=== PATIENT | female | born 1985 | race Caucasian/White ===

== ENCOUNTER 2020-12-10 13:47 | Emergency (ER) | payer OTHER, SELFPAY ==
--- NOTE | ~2020-12-10 | US_ITS ---
EXAMINATION: US OB <=14 wk fetus w TV DATE: 12/10/2020 15:46 INDICATION: Vaginal bleeding and cramping during first trimester of TECHNIQUE: Real-time pelvic ultrasound utilizing both a transvaginal and transabdominal probe was pe rformed. The interpreting radiologist was not present for the study. COMPARISON: None. FINDINGS: The uterus measures 10.4 x 6.8 x 7.2 cm. There is an intrauterine gestational sac. There is a 2 mm p eripheral nodular echogenic focus within the sac which could represent the pole. No evident fet al heart motion on Doppler imaging. The resorptive crown rump length of 2 mm would correlate with an estimated gestational age of 5 weeks and 5 days. The mean sac diameter measures 2.2 cm. There is a 1. 3 x 0.6 x 1.2 cm hypoechoic likely subchorionic hematoma along one side of the gestational sac. The right ovary measures 2.9 x 2.4 x 1.8 cm. The left ovary measures 3.9 x 2.6 x 2.3 cm. There are a few subcentimeter anechoic cysts/follicles at both ovaries. Vascular flow identified at both ovaries on color Doppler. There is no free fluid in the pelvis. IMPRESSION: 1. Single intrauterine gestational sac with possible 2 mm pole but no discernible heart motion on color Doppler which could be due to either early or failed . 2. Gestational age by ultrasound based upon presumptive 2 mm pole of 5 weeks 5 day(s) +/- 4 da y(s) with ultrasound estimated date of delivery (DANIEL) of 08/07/2021. 3. Small subchorionic hematoma. Reviewed, dictated and finalized at location A. IMPRESSION: 1. Single intrauterine gestational sac with possible 2 mm pole but no dis cernible heart motion on color Doppler which could be due to either early pregn prasanth or failed . 2. Gestational age by ultrasound based upon presumptive 2 mm pole of 5 w eeks 5 day(s) +/- 4 day(s) with ultrasound estimated date of delivery (DANIEL) of 08/07/2021. 3. Small subchorionic hematoma.
[2020-12-10 13:55] VITALS: BP 127/69; PULSE 58; RESP 18; TEMP 36.8; O2SAT 99
[2020-12-10 14:12] LABS: Basophils Percent Auto 0.5 % (0.2-1.2); Eosinophils Absolute Auto 0.2 K/mm3 (0-0.3); Eosinophils Percent Auto 3.4 % (0-4.4); Hematocrit 40.4 % (37.0-47.0); Hemoglobin 13.4 g/dL (12.0-15.0); Immature Granulocyte Absolute 0.02 K/mm3 (0.00-0.031); Immature Granulocyte Percent A 0.3 % (0-0.5); Lymphocytes Absolute Auto 1.67 K/mm3 (0.9-3.2); Lymphocytes Percent Auto 26.9 % (18.3-44.2); Mean Corpuscular HGB Conc 33.2 g/dl (32-36); Mean Corpuscular Hemoglobin 28.8 pg (26-34); Mean Corpuscular Volume 86.9 fl (80-100); Mean Platelet Volume 8.5 fl (7.4-10.4); Monocytes Absolute Auto 0.3 K/mm3 (0.1-0.6); Monocytes Percent Auto 4.7 % (2.6-8.5); Neutrophils Percent Auto 64.2 % (45.5-73.1); Platelet Count Result 240 k/mm3 (150-375); Red Blood Count 4.65 M/mm3 (4.2-5.4); Red Cell Distribution Width 14.1 % (11.5-14.5); White Blood Count 6.2 K/mm3 (4.5-10.0)
--- NOTE | 2020-12-10 15:10 | PC.NURSE ---
Pelvic exam per Dr. Mejia with administrative tech x2. Pt tolerated well.
[2020-12-10 15:20] VITALS: BP 102/59; PULSE 61; RESP 18; O2SAT 98
[2020-12-10 15:43] VITALS: BP 125/68; PULSE 49
--- NOTE | 2020-12-10 15:43 | PC.NURSE ---
Pt to and from ultrasound. Preparing to perform orthstatics.
[2020-12-10 15:45] VITALS: BP 121/84; PULSE 64
[2020-12-10 15:46] VITALS: BP 128/84; PULSE 82
[2020-12-10 16:10] VITALS: BP 128/67; PULSE 59; RESP 17; O2SAT 99
--- NOTE | 2020-12-10 16:59 | ED.GENADULT ---
HPI - General Adult General Chief complaint: ASSOCIATE RELATIONS SPECIALIST Stated complaint: preg, vag bleed Time Seen by Provider: 12/10/20 14:49 Source: patient Mode of arrival: EMS Limitations: no limitations History of Present Illness HPI narrative: 35-year-old 4 para 3 about 10 weeks of gestation here with complaints of vaginal bleeding since this morning. Patient noticed bright red blood on her toilet paper. She also complains of lower abdominal cramping. She denies passing any clots. Onset (ago): hour(s) (1) Quality: aching Associated symptoms: denies other symptoms Review of Systems Review of Systems: All systems reviewed & are unremarkable except as noted in HPI and below Constitutional: Constitutional: Reports no additional constitutional complaints Eyes: Eyes: Reports no additional eye complaints ENT: Reports system reviewed and no additional complaints, except as documented Cardiovascular: Cardiovascular: Reports no additional cardiovascular complaints Respiratory: Respiratory: Reports no additional respiratory complaints Gastrointestinal: Gastrointestinal: Reports no additional gastrointestinal complaints Genitourinary: Genitourinary: Reports as per HPI Musculoskeletal: Musculoskeletal: Reports no additional musculoskeletal complaints Integumentary/Breasts: Skin/Breast: Reports system reviewed and no additional complaints, except as docu Exam Narrative: Exam Narrative: GENERAL: Well-appearing, well-nourished, and in no acute distress. HEAD: Normocephalic, atraumatic. EYES: PERRLA and EOMI.. NECK: Supple. CHEST: Clear to auscultation. No respiratory distress. HEART: Regular rate and rhythm. No murmur heard. Normal peripheral pulses. ABDOMEN: Soft, nontender, nondistended, normal active bowel sounds. Pelvic normal labia. No blood in the vaginal vault. Cervix closed EXTREMITIES: Normal range of motion. No edema. SKIN: Warm, dry, no rash. NEURO: No focal deficits. Alert and oriented x3. PSYCH: Normal mood and affect. Course Course Emergency Course: Inform patient about her lab work and ultrasound findings she states that she is about 10 weeks however the ultrasound shows 5 weeks of gestation with no heart tones yet I advised her to follow-up with her OB doctor in the next few days and repeat an ultrasound. Vital Signs Vital signs: Vital Signs Temperature 36.8 C 12/10/20 13:55 Pulse Rate 58 L 12/10/20 13:55 Respiratory Rate 18 12/10/20 13:55 Blood Pressure 127/69 12/10/20 13:55 Pulse Oximetry 99 12/10/20 13:55 Temperature 36.8 C 12/10/20 13:55 Pulse Rate 82 12/10/20 15:46 Respiratory Rate 18 12/10/20 13:55 Blood Pressure 128/84 12/10/20 15:46 Pulse Oximetry 99 12/10/20 13:55 Medical Decision Making Vital Signs Vital Signs: Vital Signs Temperature 36.8 C 12/10/20 13:55 Pulse Rate 58 L 12/10/20 13:55 Respiratory Rate 18 12/10/20 13:55 Blood Pressure 127/69 12/10/20 13:55 Pulse Oximetry 99 12/10/20 13:55 Temperature 36.8 C 12/10/20 13:55 Pulse Rate 82 12/10/20 15:46 Respiratory Rate 18 12/10/20 13:55 Blood Pressure 128/84 12/10/20 15:46 Pulse Oximetry 99 12/10/20 13:55 Lab Data Result diagrams: 12/10/20 14:03 Labs: Lab Results 12/10/20 12/10/20 12/10/20 Range/Units 14:03 14:03 14:03 WBC 6.2 (4.5-10.0) K/mm3 RBC 4.65 (4.2-5.4) M/mm3 Hgb 13.4 (12.0-15.0) g/dL Hct 40.4 (37.0-47.0) % MCV 86.9 (80-100) fl MCH 28.8 (26-34) pg MCHC 33.2 (32-36) g/dl RDW 14.1 (11.5-14.5) % Plt Count 240 (150-375) k/mm3 MPV 8.5 (7.4-10.4) fl Immature Gran % (Auto) 0.3 (0-0.5) % Neut % (Auto) 64.2 (45.5-73.1) % Lymph % (Auto) 26.9 (18.3-44.2) % [place] % (Auto) 4.7 (2.6-8.5) % Eos % (Auto) 3.4 (0-4.4) % Baso % (Auto) 0.5 (0.2-1.2) % Lymph # (Auto) 1.67 (0.9-3.2) K/mm3 [place] # (Auto) 0.3 (0.1-0.6) K/mm3 Eos # (Auto) 0.2 (0-0.3) K/mm3
== END 2020-12-10 17:10 | disposition home or self-care (01) ==
PROVIDERS: Emergency Medicine; Emergency Provider Family Medicine
DX: O20.0 Threatened abortion (principal); Z3A.01 Less than 8 weeks gestation of pregnancy
CPT/HCPCS: 36415; 76801; 76817; 84702; 85025; 85461; 99284

== ENCOUNTER 2020-12-13 14:39 | Emergency (ER) | payer OTHER, SELFPAY ==
--- NOTE | ~2020-12-13 | US_ITS ---
EXAMINATION: US OB <=14 wk fetus w TV DATE: 12/13/2020 15:16 INDICATION: Vaginal bleeding. First trimester. TECHNIQUE: Real-time transabdominal and transvaginal pelvic ultrasound was performed. COMPARISON: Ultrasound 12/10/2020 FINDINGS: TRANSABDOMINAL ULTRASOUND: The uterus measures 10.5 x 6.5 x 8.7 cm. TRANSVAGINAL ULTRASOUND: There is an intrauterine gestational sac with mean diameter of 2.3 cm, which correlates with an estimated gestational age of 7 weeks and 1 day +/- 5 days. No yolk sac is identif ied, which is not reassuring. There are 3 mm and 4 mm masses in the gestational sac, either of which could be a pole. heart motion is not identified, which is normal at this size. The right ovary measures 1.9 x 2.0 x 2.9 cm. The left ovary measures 2.3 x 2.6 x 2.0 cm. There is no free flui d in the pelvis. IMPRESSION: 1. Single intrauterine gestational sac with 3 mm and 4 mm masses, either of which or both of which c ould be poles. Serial beta-hCGs are recommended. Reviewed, dictated and finalized at location A. IMPRESSION: 1. Single intrauterine gestational sac with 3 mm and 4 mm masses, either of wh ich or both of which could be poles. Serial beta-hCGs are recommended.
[2020-12-13 14:38] VITALS: BP 121/73; PULSE 85; RESP 18; TEMP 36.1; O2SAT 97
--- NOTE | 2020-12-13 14:59 | PC.NURSE ---
Pt to US via wheelchair at this time.
[2020-12-13 15:16] LABS: Add Urine Microscopic? YES; Appearance Urine Cloudy (Clear); Bacteria Urine Trace /hpf; Bilirubin Urine Negative (Negative); Blood Urine 3+ (Negative); Color Urine Yellow (Yellow); Glucose Urine UA Negative (Negative); Ketones Urine Trace mg/dL (Negative); Leukocyte Esterase Ur Negative LEU/UL (Negative); Mucus Urine Moderate /lpf; Nitrate Urine Negative (Negative); Protein Urine 1+ mg/dL (Negative); RBC Urine 51-75 /hpf (0-2); Specific Grav Ur 1.024 (1.001-1.035); Squamous Epithelial Cell Urine Many /hpf (Few); WBC Urine 0-3 /hpf
[2020-12-13] MEDS: SODIUM CHLORIDE 0.9% IV 1,000 ML 999 ML IV CONT (15:23)
[2020-12-13 15:37] LABS: Basophils Percent Auto 0.4 % (0.2-1.2); Eosinophils Absolute Auto 0.1 K/mm3 (0-0.3); Eosinophils Percent Auto 1.8 % (0-4.4); Hematocrit 38.1 % (37.0-47.0); Hemoglobin 12.6 g/dL (12.0-15.0); Immature Granulocyte Absolute 0.02 K/mm3 (0.00-0.031); Immature Granulocyte Percent A 0.3 % (0-0.5); Lymphocytes Absolute Auto 1.52 K/mm3 (0.9-3.2); Lymphocytes Percent Auto 21.3 % (18.3-44.2); Mean Corpuscular HGB Conc 33.1 g/dl (32-36); Mean Corpuscular Hemoglobin 28.8 pg (26-34); Mean Corpuscular Volume 87.2 fl (80-100); Mean Platelet Volume 8.6 fl (7.4-10.4); Monocytes Absolute Auto 0.4 K/mm3 (0.1-0.6); Monocytes Percent Auto 5.7 % (2.6-8.5); Neutrophils Percent Auto 70.5 % (45.5-73.1); Platelet Count Result 238 k/mm3 (150-375); Red Blood Count 4.37 M/mm3 (4.2-5.4); Red Cell Distribution Width 14.1 % (11.5-14.5); White Blood Count 7.1 K/mm3 (4.5-10.0)
--- NOTE | 2020-12-13 15:47 | ED.GENADULT ---
HPI - General Adult General Chief complaint: Vaginal Bleeding Stated complaint: vag bleed Source: patient, family, EMS, RN notes reviewed and old records reviewed Mode of arrival: EMS Limitations: no limitations History of Present Illness HPI narrative: Patient is a 35-year-old female who presents per EMS from home noting that she had cramping and passed 2 clots today patient began to have bleeding on Friday and had been seen in the emergency department was evaluated had ultrasound and pelvic exam and was discharged home and has follow-up with her customer support coordinator Dr. Pelaez in clinic tomorrow. On arrival to the emergency department patient is in no distress does not appear uncomfortable. Patient denies any heavy vaginal bleeding or any recent illness injury trauma or other concerns at this time. Patient lives at home with the boyfriend. Patient with history of has had a tubal ligation. Patient notes that she had initially had an ultrasound 5 weeks ago saying that she was 5 weeks and then again this weekend had another ultrasound which also showed that she had not progressed concerning for miscarriage Related Data Home Medications Medication Instructions Recorded Confirmed No Home Medications 12/13/20 Allergies Allergy/AdvReac Type Severity Reaction Status Date / Time No Known Allergies Allergy Verified 12/13/20 14:52 Review of Systems Review of Systems: All systems reviewed & are unremarkable except as noted in HPI and below [facility] Social History Social History (Updated 12/13/20 @ 15:48 by Cipriano Felipe PA-C) Smoking status: Current every day smoker Exam Narrative: Exam Narrative: GENERAL: Well-appearing, obese, and in no acute distress. HEAD: Normocephalic, atraumatic. EYES: PERRLA and EOMI. ENT: Nares clear, no rhinorrhea or epistaxis. Mucous membranes moist. CHEST: Clear to auscultation. No respiratory distress. No wheezes rales or rhonchi HEART: Regular rate and rhythm. No murmur heard. Normal peripheral pulses. ABDOMEN: Soft, nontender, nondistended. EXTREMITIES: Normal range of motion. No edema. SKIN: Warm, dry, no rash. NEURO: No focal deficits. Alert and oriented x3. PSYCH: Normal mood and affect. Course Course Emergency Course: Patient was evaluated in the emergency department patient did not receive RhoGam on Friday will be given at today. Discussion was made with the patient's customer support coordinator who agrees that the patient can be sent home and will follow her in clinic tomorrow. Patient is afebrile nontoxic-appearing no distress no high risk changes in the evaluation. ABCs and vital signs intact and stable Consultations Consultation #1: Discussed case with the patient's customer support coordinator Dr. Pelaez who will see patient in clinic tomorrow does recommend giving RhoGam Date: 12/13/20 Time: 15:49 Vital Signs Vital signs: Vital Signs Temperature 97 F L 12/13/20 14:38 Pulse Rate 85 12/13/20 14:38 Respiratory Rate 18 12/13/20 14:38 Blood Pressure 121/73 12/13/20 14:38 Pulse Oximetry 97 12/13/20 14:38 Temperature 97 F L 12/13/20 14:38 Pulse Rate 58 L 12/13/20 16:10 Respiratory Rate 16 12/13/20 16:10 Blood Pressure 115/61 12/13/20 16:10 Pulse Oximetry 100 12/13/20 16:10 Medical Decision Making MDM Narrative Medical decision making narrative: Patient evaluated in the emergency department for possible threatened miscarriage with abdominal pain and vaginal bleeding in early . Patient given RhoGam prior to discharge. Patient hemodynamically stable will follow the recommendations of her customer support coordinator and see him in clinic tomorrow. Patient serum quant is also dropping from Friday's visit concerning for a miscarriage Vital Signs Vital Signs: Vital Signs Temperature 97 F L 12/13/20 14:38 Pulse Rate 85 12/13/20 14:38 Respiratory Rate 18 12/13/20 14:38 Blood Pressure 121/73 12/13/20 14:38 Pulse Oximetry 97 12/13/20 14:38 Temperatur
[2020-12-13 15:51] LABS: Alanine Aminotransferase 9 U/L (4-35); Albumin Level 4.2 g/dL (3.5-5.1); Alkaline Phosphatase 58 U/L (38-126); Anion Gap 8 mmol/L (8-16); Aspartate Amino Transferase 19 U/L (14-36); Bilirubin,Total 0.4 mg/dL (0.2-1.3); Blood Urea Nitrogen 6 mg/dL (7-17); Calcium 9.6 mg/dL (8.4-10.2); Carbon Dioxide 21 mmol/L (22-30); Chloride 108 mmol/L (98-107); Estimated CRCL calculation 122 ml/min; Estimated Glomerular Filt Rate > 60; Glucose 96 mg/dL (65-105); Sodium 137 mmol/L (137-145)
[2020-12-13 16:10] VITALS: BP 115/61; PULSE 58; RESP 16; O2SAT 100
[2020-12-13 16:17] LABS: Potassium 3.7 mmol/L (3.4-5.0)
[2020-12-13] MEDS: RHO(D) IMMUNE GLOBULIN 300 MCG/2 ML SYRINGE IM (17:15)
[2020-12-13 17:56] VITALS: BP 118/75; PULSE 78; RESP 18; O2SAT 100
== END 2020-12-13 17:57 | disposition home or self-care (01) ==
PROVIDERS: Emergency Medicine Emergency Medical Services; Emergency Provider Emergency Medicine
DX: O20.9 Hemorrhage in early pregnancy, unspecified (principal); O99.331 Smoking (tobacco) complicating pregnancy, first trimester; F17.200 Nicotine dependence, unspecified, uncomplicated; Z3A.01 Less than 8 weeks gestation of pregnancy
CPT/HCPCS: 36415; 76801; 76817; 80053; 81001; 84702; 85025; 85461; 90384; 96361; 96365; 96372; 99284; J0131; J2790; J7030

== ENCOUNTER 2020-12-14 08:40 | Emergency (ER) | payer OTHER, SELFPAY ==
[2020-12-14] VITALS (8 sets, daily range): BP systolic 103–132; BP diastolic 53–96; PULSE 56–74; RESP 15–21; TEMP 37.1; O2SAT 94–100
[2020-12-14 09:48] LABS: Basophils Percent Auto 0.3 % (0.2-1.2); Eosinophils Absolute Auto 0.1 K/mm3 (0-0.3); Eosinophils Percent Auto 1.2 % (0-4.4); Hemoglobin 12.2 g/dL (12.0-15.0); Immature Granulocyte Absolute 0.02 K/mm3 (0.00-0.031); Immature Granulocyte Percent A 0.2 % (0-0.5); Lymphocytes Absolute Auto 1.21 K/mm3 (0.9-3.2); Lymphocytes Percent Auto 13.4 % (18.3-44.2); Mean Corpuscular Volume 87.9 fl (80-100); Mean Platelet Volume 8.8 fl (7.4-10.4); Monocytes Absolute Auto 0.4 K/mm3 (0.1-0.6); Monocytes Percent Auto 4.8 % (2.6-8.5); Neutrophils Absolute Auto 7.2 K/mm3 (1.3-6.7); Neutrophils Percent Auto 80.1 % (45.5-73.1); Platelet Count Result 222 k/mm3 (150-375); Red Blood Count 4.21 M/mm3 (4.2-5.4); Red Cell Distribution Width 14.2 % (11.5-14.5)
[2020-12-14] MEDS: SODIUM CHLORIDE 0.9% IV 1,000 ML 999 ML IV CONT (09:52)
[2020-12-14 10:02] LABS: Alanine Aminotransferase 9 U/L (4-35); Albumin Level 3.9 g/dL (3.5-5.1); Alkaline Phosphatase 55 U/L (38-126); Anion Gap 5 mmol/L (8-16); Aspartate Amino Transferase 18 U/L (14-36); Bilirubin,Total 0.3 mg/dL (0.2-1.3); Blood Urea Nitrogen 5 mg/dL (7-17); Calcium 9.1 mg/dL (8.4-10.2); Carbon Dioxide 21 mmol/L (22-30); Chloride 111 mmol/L (98-107); Estimated CRCL calculation 140 ml/min; Estimated Glomerular Filt Rate > 60; Glucose 106 mg/dL (65-105); Potassium 3.7 mmol/L (3.4-5.0); Sodium 137 mmol/L (137-145)
--- NOTE | 2020-12-14 11:19 | ED.FALL ---
HPI - Fall General Chief Complaint: Vaginal Bleeding Stated Complaint: vag bleed Time Seen by Provider: 12/14/20 09:02 Source: patient and RN notes reviewed Mode of arrival: ambulatory Limitations: no limitations History of Present Illness HPI Narrative: Patient is a 35-year-old female who presents noting that she passed what she described as the fetus in the bathroom this morning did not bring the tissue to the emergency department has been seen yesterday diagnosed with what was an inevitable miscarriage. Patient was post to see her lottery clerk today but did not. Patient on arrival notes cramping in the lower abdomen denies any heavy bleeding. Patient otherwise does not appear uncomfortable or distressed presents with the partner Related Data Home Medications Medication Instructions Recorded Confirmed PNV,calcium 32-cfvx-celau acid tablet 12/14/20 [ Vitamin Plus Low Iron] acyclovir 12/14/20 12/14/20 metronidazole 12/14/20 progesterone micronized mg 12/14/20 Allergies Allergy/AdvReac Type Severity Reaction Status Date / Time No Known Allergies Allergy Verified 12/13/20 14:52 Review of Systems Review of Systems: All systems reviewed & are unremarkable except as noted in HPI and below [facility] Social History Social History Smoking status: Current every day smoker Exam Narrative: Exam Narrative: GENERAL: Well-appearing, obese, and in no acute distress. HEAD: Normocephalic, atraumatic. EYES: PERRLA and EOMI. ENT: Nares clear, no rhinorrhea or epistaxis. Mucous membranes moist. CHEST: Clear to auscultation. No respiratory distress. No wheezes rales or rhonchi HEART: Regular rate and rhythm. No murmur heard. Normal peripheral pulses. ABDOMEN: Soft, nontender, nondistended EXTREMITIES: Normal range of motion. No edema. SKIN: Warm, dry, no rash. NEURO: No focal deficits. Alert and oriented x3. Cranial nerves II through XII grossly intact PSYCH: Normal mood and affect. Course Course Emergency Course: Patient in the room no distress aware of discussion with her lottery clerk and plans to follow-up in office patient afebrile nontoxic-appearing no distress ABCs and vital signs intact no high risk changes in the blood work or imaging patient squats have continued to drop supporting the miscarriage as well as passing the tissue today. Vital Signs Vital signs: Vital Signs Temperature 98.7 F 12/14/20 08:42 Pulse Rate 74 12/14/20 08:42 Respiratory Rate 16 12/14/20 08:42 Blood Pressure 106/53 L 12/14/20 08:42 Pulse Oximetry 99 12/14/20 08:42 Temperature 98.7 F 12/14/20 08:42 Pulse Rate 74 12/14/20 08:42 Respiratory Rate 16 12/14/20 08:42 Blood Pressure 106/53 L 12/14/20 08:42 Pulse Oximetry 99 12/14/20 08:42 MDM - Fall MDM Narrative Medical decision making narrative: Patient will be discharged home at this time patient had RhoGam yesterday and will follow with her lottery clerk as planned patient feels comfortable with this plan and has been given reasons to return Lab Data Result diagrams: 12/14/20 09:37 12/14/20 09:37 Labs: Lab Results 12/14/20 12/14/20 Range/Units 09:37 09:37 WBC 9.0 (4.5-10.0) K/mm3 RBC 4.21 (4.2-5.4) M/mm3 Hgb 12.2 (12.0-15.0) g/dL Hct 37.0 (37.0-47.0) % MCV 87.9 (80-100) fl MCH 29.0 (26-34) pg MCHC 33.0 (32-36) g/dl RDW 14.2 (11.5-14.5) % Plt Count 222 (150-375) k/mm3 MPV 8.8 (7.4-10.4) fl Immature Gran % (Auto) 0.2 (0-0.5) % Neut % (Auto) 80.1 H (45.5-73.1) % Lymph % (Auto) 13.4 L (18.3-44.2) % [place] % (Auto) 4.8 (2.6-8.5) % Eos % (Auto) 1.2 (0-4.4) % Baso % (Auto) 0.3 (0.2-1.2) % Lymph # (Auto) 1.21 (0.9-3.2) K/mm3 [place] # (Auto) 0.4 (0.1-0.6) K/mm3 Eos # (Auto) 0.1 (0-0.3) K/mm3 Baso # (Auto) 0.0 (0.0-0.1) K/mm3 Abs Immat Gran (auto) 0.02 (0.00-0.031) K/mm3 A
== END 2020-12-14 11:36 | disposition home or self-care (01) ==
PROVIDERS: Emergency Medicine Emergency Medical Services; Emergency Provider Emergency Medicine
DX: O03.9 Complete or unspecified spontaneous abortion without complication (principal); F17.200 Nicotine dependence, unspecified, uncomplicated
CPT/HCPCS: 36415; 80053; 84702; 85025; 96361; 96365; 99284; J0131; J7030

== ENCOUNTER 2025-02-25 12:51 | Emergency (ER) | payer OTHER, SELFPAY ==
--- NOTE | ~2025-02-25 | XR_ITS ---
XR foot RT min 3V Ordering provider: Smooth Montano MD History: . injury . Comparison: None FINDINGS: BONES: fracture in the distal shaft of the right fibula. No other fractures seen. The JOINT SPACES: Normal. No tarsal coalition. SOFT TISSUES: Normal. IMPRESSION: Fracture in the distal shaft of the right fibula. Reviewed, dictated and finalized at location A.
--- NOTE | ~2025-02-25 | XR_ITS ---
XR ankle RT min 3V Ordering provider: Smooth Montano MD History: . injury . Comparison: None. FINDINGS: BONES: Fracture in the distal right fibula is noted. No other fractures seen. JOINT SPACES: Subluxation of the joint between the distal fibula and distal tibia is noted. SOFT TISSUES: Soft tissue swelling over the lateral malleolus. IMPRESSION: Fracture in the distal fibula. Reviewed, dictated and finalized at location A.
[2025-02-25 12:53] VITALS: BP 142/91; PULSE 96; RESP 18; TEMP 36.6; O2SAT 100
--- NOTE | 2025-02-25 13:56 | ED.GENADULT ---
HPI - General Adult General Chief complaint: Extremity Injury, Lower Stated complaint: R ankle injury Time Seen by Provider: 02/25/25 13:29 History of Present Illness HPI narrative: 39-year-old female presents to the emergency department for evaluation for right lower leg pain. Patient reports that she had a mechanical fall tripping over some shoes that were in her hallway. Patient does report right lower leg pain but denies striking head denies loss consciousness. Patient denies any other pain or injury. Related Data Home Medications ?Medication ?Instructions ?Recorded ?Confirmed ?Last Taken ?Type acyclovir 800 mg tablet 12/14/20 12/14/20 Unknown History metronidazole 500 mg tablet 12/14/20 Unknown History vitamins with calcium tablet 12/14/20 Unknown History no.72-iron 27 mg-folic acid 1 mg tablet ( Vitamins Plus Low Iron) progesterone micronized 200 mg mg 12/14/20 Unknown History capsule Allergies Allergy/AdvReac Type Severity Reaction Status Date / Time No Known Allergies Allergy Verified 12/13/20 14:52 Review of Systems Review of Systems: All systems reviewed & are unremarkable except as noted in HPI and below [facility] Social History Social History Smoking status: Current every day smoker Gender identity (if verbalized by the patient): Female Exam Narrative: APPEARANCE: Well appearing, no pain, no distress, well-nourished. HEAD: normocephalic, atraumatic. EYES: PERRLA/EOMI, conjunctivae clear. NOSE: Normal no drainage EARS:TMS clear with good light reflex. THROAT: Pharynx clear, no exudate. NECK: Supple. No adenopathy, no masses. RESPIRATORY: Airway patent, respirations nonlabored. Clear to auscultation bilaterally, no rales, rhonchi, wheezing. CARDIOVASCULAR: Regular rate and rhythm without murmurs rubs or gallops. ABDOMINAL: Soft, nontender, nondistended, normal bowel sounds MUSCULOSKELETAL: Distal fib tenderness to palpation with mild swelling. No proximal tib-fib tenderness to palpation NEURO: Alert. Cranial nerves II through XII intact. Good gait. Good coordination SKIN: Warm, dry. Normal Color Course Vital Signs Vital signs: Vital Signs Temperature 97.9 F 02/25/25 12:53 Pulse Rate 96 02/25/25 12:53 Respiratory Rate 18 02/25/25 12:53 Blood Pressure 142/91 H 02/25/25 12:53 Pulse Oximetry 100 02/25/25 12:53 Oxygen Delivery Room Air 02/25/25 12:53 Temperature 97.9 F 02/25/25 12:53 Pulse Rate 96 02/25/25 12:53 Respiratory Rate 18 02/25/25 12:53 Blood Pressure 142/91 H 02/25/25 12:53 Pulse Oximetry 100 02/25/25 12:53 Oxygen Delivery Room Air 02/25/25 12:53 Medical Decision Making MDM Narrative Medical decision making narrative: 39-year-old female presenting to the emergency department for evaluation for right lower leg pain. Patient does have a distal fibular fracture. No proximal tib-fib tenderness to palpation. Patient was placed in short-leg splint and provided crutches for limited weight-bearing. Patient was brought medication for pain control emergency department. Differential Diagnosis Differential Diagnosis: Proximal tib-fib fracture, distal fib fracture, foot fracture Vital Signs Vital Signs: Vital Signs Temperature 97.9 F 02/25/25 12:53 Pulse Rate 96 02/25/25 12:53 Respiratory Rate 18 02/25/25 12:53 Blood Pressure 142/91 H 02/25/25 12:53 Pulse Oximetry 100 02/25/25 12:53 Oxygen Delivery Room Air 02/25/25 12:53 Temperature 97.9 F 02/25/25 12:53 Pulse Rate 96 02/25/25 12:53 Respiratory Rate 18 02/25/25 12:53 Blood Pressure 142/91 H 02/25/25 12:53 Pulse Oximetry 100 02/25/25 12:53 Oxygen Delivery Room Air 02/25/25 12:53 Imaging Data Radiologist's impression: Impressions Ankle X-Ray 02/25/25 13:22 IMPRESSION: Fracture in the distal fibula. Foot X-Ray 02/25/25 13:23 IMPRESSION: Fracture in the distal shaft of the right fibula. Discharge Plan Discharge Clinical Impression: Closed fibular fracture Patient Disposition: Home Condition: Stable Instructions: Antibiotic Form, Ankle Fracture (ED), Crutch Instructions (ED), Splint Care (ED) Additional Instructions: Splint care as directed. Ibuprofen for pain control. Flexeril for muscle spasm. Olin as needed for additional pain control. Have close follow-up with Orthopedics. If you have any worsening symptoms then please call or return to the emergency department. Patient Language: Citizen Of [place] Prescriptions: New cyclobenzaprine 10 mg tablet 10 mg PO BID PRN (Reason: muscle spasm) Qty: 14 0RF hydrocodone-acetaminophen 5-325 mg tablet 1 tablet PO Q12H PRN (Reason: pain) Qty: 14 0RF No Action metronidazole 500 mg tablet acyclovir 800 mg tablet progesterone micronized 200 mg capsule Vitamin Plus Low Iron 27 mg iron- 1 mg tablet Follow-up/Referrals: PHYSICIAN,COOLER DELIVERER [Primary Care Provider] - Kyle Quinn MD [Physician] -
[2025-02-25] MEDS: HYDROcodone/acetaminophen (*CRX) 5-325 MG TABLET 1 TAB PO (14:23)
[2025-02-25] MEDS: KETOROLAC (*BKC) 60 MG/2 ML VIAL IM (14:23)
[2025-02-25] MEDS: CYCLOBENZAPRINE HCL 10 MG TABLET PO (14:23)
== END 2025-02-25 15:10 | disposition home or self-care (01) ==
LOC: ANHED 14:00
PROVIDERS: Emergency Provider Emergency Medicine
DX: S82.831A Other fracture of upper and lower end of right fibula, initial encounter for closed fracture (principal); W18.09XA Striking against other object with subsequent fall, initial encounter; F17.200 Nicotine dependence, unspecified, uncomplicated
CPT/HCPCS: 29515; 73610; 73630; 96372; 99284; A9270; J1885

== ENCOUNTER 2025-03-11 00:09 | Day surgery (SDC) | payer OTHER, SELFPAY ==
[2025-03-07 13:13] VITALS: BMI 39.9
--- NOTE | 2025-03-07 13:23 | PC.NURSE ---
Report to the Outpatient Waiting Room, entrance under the green pavilion located off [facility], at time _1230_ on date _[id number]_. Planned Procedure Time: _230pm_.? Time changes happen often and if your time is changed the preop area will call you the afternoon before. - You and your visitor will be asked to self-screen and do not enter if you have any COVID symptoms. Please call surgeon if you need to reschedule. - A mask is optional within the hospital at this time. Patients may have clear liquids (water, carbonated beverages, clear teas, apple juice) until 3 hours prior to surgery with a maximum of 20 ounces. - No food from midnight until time of surgery and no smoking, or chewing tobacco (or any form of nicotine). No chewing gum, candy or mints. Take only the following medications with a SIP of water on the morning of surgery: __None DO NOT STOP ANY OF YOUR OTHER PRESCRIPTION MEDICATIONS PRIOR TO SURGERY EXCEPT THE FOLLOWING Hold all vitamins and supplements for 3 days per anesthesiologist. Medications to discontinue per physician Date to take last dose Please no make-up, nail stateless, hairspray, perfume, deodorant, or body powder the day of surgery.? No jewelry (including any body piercings) or valuables the day of surgery, leave them at home.? Please take a shower or bath the night before, or the morning of, surgery with an antibacterial soap.? Wear comfortable, loose fitting clothing.? - Jewelry must be removed prior to entering the operating room.? Rings and piercings that are not removed may be cut off. - The hospital will not accept responsibility for valuables.? - Please leave all valuables, including medications, at home the day of surgery. If you are going home after surgery, a licensed local [place] truck driver must drive you home.? - NO public transportation without another adult if you receive anesthesia. - We recommend that an adult stay with you for 24 hours following discharge. - We also recommend that you do not drive, make important decision, drink alcoholic beverages, or take any drugs that were not prescribed by your health care provider for at least 24 hours after your discharge time. Follow any additional instructions given to you from your surgeon. Telephone instructions given to __Tara___and asked if any additional questions and then verbalized understanding. Patient advised to call surgeon office or pre surgery nurse liaison [phone] if any additional questions.
[2025-03-11] VITALS (9 sets, daily range): BP systolic 104–163; BP diastolic 73–92; PULSE 65–110; RESP 12–22; TEMP 36.5–37; O2SAT 99–100
--- NOTE | ~2025-03-11 | XR_ITS ---
EXAMINATION: XR surgery orthopedic DATE: 03/11/2025 17:09 INDICATION: ORIF distal right fibula fracture TECHNIQUE: 7 fluoroscopic images of the right ankle were obtained during procedure performed by Dr. Christel amaya. Radiologist was not present for the imaging or procedure. The amount of fluoroscopy time u sed during this procedure was 0.9 minutes. Total DAP was 0.581 Gycm^2. COMPARISON: 02/25/2025 FINDINGS: Interval open reduction and lateral plate and screw fixation of a previous noted oblique fr acture of the distal right fibular diaphysis. There are metallic buttons on either side of a lucent t unnel extending across the metaphyseal region of the distal tibia and fibula consistent with tightrop e type syndesmotic fixation. Alignment appears near-anatomic with a congruent ankle mortise. No other fractures identified. Tibiotalar joint space appears normal. Expected small amount of soft tissue ga s at the operative bed. IMPRESSION: 1. Near-anatomic alignment post internal fixation of a distal right fibular diaphyseal fracture as we ll as distal tibiofibular syndesmotic fixation. See procedure note for further detail. Reviewed, dictated and finalized at location A. IMPRESSION: 1. Near-anatomic alignment post internal fixation of a distal right fibular winnie physeal fracture as well as distal tibiofibular syndesmotic fixation. See proce dure note for further detail.
[2025-03-11] MEDS: ACETAMINOPHEN 500 MG TABLET 1000 MG PO (13:17)
[2025-03-11] MEDS: KETOROLAC 15 MG/ML VIAL (*BKC) IV PUSH (13:21)
--- NOTE | 2025-03-11 14:52 | WPDHPUPDATE1 ---
History and Physical Update Update Date/Time: 03/11/25 14:52 History and Physical has been reviewed, including an updated exam of the patient. There are NO changes in the patient's condition. Risks, benefits, and alternatives have been discussed and questions answered. Patient agrees to proceed with procedure.
--- NOTE | 2025-03-11 14:53 | WPDANESEPPF ---
Anes - Initial Pre Proc Eval Procedure: Operation Date: 03/11/25 14:30 Proposed Procedures p Open Reduction Internal Fixation Right Distal Fibula Fracture with Syndesmosis Repair - Kyle Quinn MD Date/Time: 03/11/25 14:53 Surgeon: Kyle Quinn MD Pre Op Diagnosis: Right Distal Fibula Fx Patient Data Age: 39 Gender: F Height: 1.65 m Weight: 110.6 kg Last Vital Signs Temp 37.0 C 03/11/25 12:50 Pulse 68 03/11/25 12:50 Resp 20 03/11/25 12:50 BP 115/76 03/11/25 12:50 Pulse Ox 99 03/11/25 12:50 O2 Del Method Room Air 03/11/25 12:50 Allergies Allergy/AdvReac Type Severity Reaction Status Date / Time No Known Allergies Allergy Verified 03/11/25 12:32 Home Medications ?Medication ?Instructions ?Recorded ?Confirmed ?Type cyclobenzaprine 10 mg tablet 10 mg PO BID PRN muscle spasm #14 02/25/25 03/11/25 Rx tabs Patient hx anesthesia problems: none Family hx anesthesia problems: none Results Review: All pre-operative results and documents have been reviewed as part of the pre-operative evaluation. [facility] Surgical History Surgical History History of tubal ligation (~2008) Social History Social History Smoking status: Current every day smoker Tobacco type: cigarettes Substance use type: marijuana Other substance usage details: Daily Gender identity (if verbalized by the patient): Female Anes - Eval Final PreProcedure Day of Procedure 03/11/25 14:53 Patient weight: morbidly obese Heart: regular rate and rhythm Lungs: decreased breath sounds Airway: Mallampati scale class II Neurological: alert and oriented Last oral intake: >/= 8 hours ASA classification: III Emergent: no Anesthetic plan: proceed Anesthesia type and monitoring: general LMA and standard monitoring Results Review: All pre-operative results and documents have been reviewed as part of the pre-operative evaluation. Informed Consent: The patient's anesthetic plan and its attendant risks and benefits were discussed with the patient/family/POA. Questions were solicited and answers provided to the satisfaction of the patient/family/POA.
[2025-03-11] MEDS: ceFAZolin 2 GM in SODIUM CHLORIDE 0.9% IV 50 ML 100 ML IVPB (15:15)
[2025-03-11] MEDS: BUPIVACAINE/EPINEPHRINE 0.5% 50 ML VIAL 30 ML INFILTRATE (15:51)
[2025-03-11] MEDS: VANCOMYCIN HCL 1,000 MG VIAL 1000 MG TOPICAL (16:51)
[2025-03-11] MEDS: LACTATED RINGERS 1,000 ML 30 ML IV CONT ×2 (17:22)
--- NOTE | 2025-03-11 17:31 | W.PM.PROC2 ---
Procedure Note - Detailed Date of Procedure 03/11/25 Pre-op Diagnosis Right Distal Fibula Fx and tib fib syndesmosis sprain Post-op Diagnosis Same Procedure Performed 1. ORIF distal fibula Romero C fracture 2. ORIF tib-fib syndesmosis Surgeon Kyle Quinn MD Anesthesia General Findings Comminuted Romero C fibula fracture. Mild tib fib syndesmosis instability. Lateral fibula plate with locking screws and syndesmosis tight rope fixation performed. Description of Procedure A general anesthetic was administered. The limb was prepped and draped in the usual sterile fashion with a well-padded tourniquet high on the thigh. A bump was placed under the hip. The tourniquet was not used. A longitudinal incision was created at the distal fibula. Blunt dissection was carried down to bone. Perineal nerve branches were protected. The fracture was carefully exposed. Callus and debris was irrigated from the wound. The fracture was partially healing after 2 weeks and significantly comminuted. Care was taken to meticulously reduce the fracture and bring it out to length. Reduction was accomplished with the reduction forceps. The fixation plate was contoured. Fixation was performed with a combination of compression and locking screws. Fluoroscopy was used throughout the procedure to confirm anatomic reduction and appropriate placement of the implants. The syndesmosis was tested and confirmed to be mildly unstable. A tight rope guidewire was placed across from the fibula to the tibia. The wire was over drilled and the tight rope inserted. It was deployed on the opposite cortex and the sutures were secured. The syndesmosis was anatomically reduced and stable.. Meticulous hemostasis was maintained. Wound was closed in layers with 2-0 Vicryl suture 3-0 Monocryl suture and armando. 1 g of vancomycin was placed in the wound. 20 mg L of 0.5% Marcaine with epinephrine was injected into the soft tissues about the wound. A sterile dressing with well padded splint was applied. The patient was extubated and brought to the recovery room in stable condition. There were no complications. Implants Arthrex 1/3 tubular plate. Multiple cortical compression and cortical locking screws. Syndesmosis tight rope. Estimated Blood Loss 50 Drains No Packing No Pathology None sent Complications No immediate complications Condition Stable Disposition PACU [facility] Billing Surgery - Charge Forward: Surgery Billing
[2025-03-11] MEDS: HYDROmorphone HCL INJ (*CRX) 1 MG/ML SYR 0.5 MG IV PUSH ×2 (17:35→17:42)
== END 2025-03-11 19:15 | disposition home or self-care (01) ==
PROVIDERS: Visit Provider Orthopaedic Surgery
PROC: (CPT 27792; principal; 2025-03-11 14:30)
DX: S82.831A Other fracture of upper and lower end of right fibula, initial encounter for closed fracture (principal); S93.431A Sprain of tibiofibular ligament of right ankle, initial encounter; W01.0XXA Fall on same level from slipping, tripping and stumbling without subsequent striking against object, initial encounter; F17.210 Nicotine dependence, cigarettes, uncomplicated; F12.90 Cannabis use, unspecified, uncomplicated; E66.01 Morbid (severe) obesity due to excess calories; Z68.41 Body mass index [BMI] 40.0-44.9, adult
CPT/HCPCS: 27792; 27829; 99199; J0690; A9270; C1713; C1769; J1100; J1171; J1885; J2003; J2250; J2405; J2704; J3010; J3373; J7120

== ENCOUNTER 2025-04-25 21:11 | Emergency (ER) | payer OTHER, SELFPAY ==
[2025-04-25 21:15] VITALS: BP 126/81; PULSE 91; RESP 17; TEMP 36.7; O2SAT 100
[2025-04-25] MEDS: KETOROLAC (*BKC) 60 MG/2 ML VIAL IM (23:28)
[2025-04-25] MEDS: CARBAMIDE PEROXIDE 6.5% OT SOLN 15 ML BTL 5 DROP EACH EAR (23:29)
--- NOTE | 2025-04-25 23:31 | ED_ITS ---
HPI - Ear Problem General Chief complaint: Ear Stated complaint: Earache Time Seen by Provider: 04/25/25 21:56 History of Present Illness HPI Narrative: Patient is a 39-year-old female who presents to the ER with right ear pain. She reports the pain started this morning. Patient reports she believes her right ear is clogged. She also endorses ringing in her ear. Patient denies any dizziness, headache, or recent congestion. She denies any pertinent medical history. Related Data Allergies Allergy/AdvReac Type Severity Reaction Status Date / Time No Known Allergies Allergy Verified 04/25/25 21:14 Review of Systems Review of Systems: All systems reviewed & are unremarkable except as noted in HPI and below PMFSH Surgical History Surgical History Status post open reduction with internal fixation (ORIF) of fracture of ankle (~03/11/25) Fibula shaft fracture History of tubal ligation (~2008) Social History Social History Years smoked: 20 Smoking status: Current every day smoker Tobacco type: cigarettes Substance use type: marijuana Other substance usage details: Daily Living arrangements: with family Gender identity (if verbalized by the patient): Female Spiritual care concerns: No Exam Narrative: GENERAL: Well appearing, well-nourished, non-toxic, in no acute distress. HEAD: Normocephalic, atraumatic. Ear cerumen clogged in both ear canals. NECK: Supple. No adenopathy, no masses. RESPIRATORY: Airway patent, respirations nonlabored. Clear to auscultation bilaterally, no rales, rhonchi, wheezing. CARDIOVASCULAR: Regular rate and rhythm without murmurs, rubs, or gallops. Peripheral pulses 2+ and equal bilaterally. ABDOMINAL: Soft, nontender, nondistended, no hepatosplenomegaly. Normoactive BS. MUSCULOSKELETAL: Moves all extremities. Strength/ROM intact without gross deformities. SKIN: Warm, dry, normal color. No rashes. NEURO: A&O X3. Speech clear. Cranial nerves II-XII intact. No ataxic movements. PSYCHIATRIC: Appropriate mood and affect. Normal interaction. Course Vital Signs Vital signs: Vital Signs Temperature 36.7 C 04/25/25 21:15 Pulse Rate 91 04/25/25 21:15 Respiratory Rate 17 04/25/25 21:15 Blood Pressure 126/81 04/25/25 21:15 Pulse Oximetry 100 04/25/25 21:15 Oxygen Delivery Room Air 04/25/25 21:15 Temperature 36.7 C 04/25/25 21:15 Pulse Rate 91 04/25/25 21:15 Respiratory Rate 17 04/25/25 21:15 Blood Pressure 126/81 04/25/25 21:15 Pulse Oximetry 100 04/25/25 21:15 Oxygen Delivery Room Air 04/25/25 21:15 Medical Decision Making MDM Narrative Medical decision making narrative: Patient is a 39-year-old female who presents to the ER with right ear pain. She reports the pain started this morning. Patient reports she believes her right ear is clogged. She also endorses ringing in her ear. Patient denies any dizziness, headache, or recent congestion. She denies any pertinent medical history. Medications Ordered: Debrox Otic, Toradol 60 mg IM, prednisone 40 mg p.o. Diagnosis: Right otitis media, right external otitis, bilateral otitis media effusions * patient had Debrox applied bilaterally then had her ears flushed with saline. Large amount of cerumen was extracted from both ears. Upon re-examination, pt's R ear has a reddened external canal and red/bulging tympanic membrane. L ear tympanic membrane pearly white and intact Patient Education/Shared MDM: Results of examination shared with patient. She endorses improvement of symptoms following medication administration and ear wash. Patient strongly advised to follow-up with her PCP as soon as possible for re-evaluation. She will be discharged home with a prescription for amoxicillin, debrox, prednisone and Ciprodex OT,. Strict return precautions provided. Patient verbalized understanding and is in agreement with plan. Vital signs stable at time of discharge. All questions answered. Differential Diagnosis Differential Diagnosis: Otitis externa, otitis media, otitis media effusion Vital Signs Vital Signs: Vital Signs Temperature 36.7 C 04/25/25 21:15 Pulse Rate 91 04/25/25 21:15 Respiratory Rate 17 04/25/25 21:15 Blood Pressure 126/81 04/25/25 21:15 Pulse Oximetry 100 04/25/25 21:15 Oxygen Delivery Room Air 04/25/25 21:15 Temperature 36.7 C 04/25/25 21:15 Pulse Rate 91 04/25/25 21:15 Respiratory Rate 17 04/25/25 21:15 Blood Pressure 126/81 04/25/25 21:15 Pulse Oximetry 100 04/25/25 21:15 Oxygen Delivery Room Air 04/25/25 21:15 Discharge Plan Discharge Clinical Impression: Otitis externa of right ear, Acute otitis media with effusion of right ear, Ringing in ears, Bilateral hearing loss due to cerumen impaction, Bilateral impacted cerumen Patient Disposition: Home Condition: Stable Instructions: Antibiotic Form, Ear Infection (ED), Earache (ED), Fluid In The Ear (Serous Otitis Media) (ED) Patient Language: Anguill[place] Prescriptions: New methylprednisolone [Medrol (Hao)] 4 mg tablets,dose pack See Rx Instructions .ROUTE .COMPLEX Qty: 21 0RF Rx Instructions: for 6 days amoxicillin 500 mg tablet 500 mg PO Q8H Qty: 30 0RF ciprofloxacin-dexamethasone 0.3-0.1 % drops,suspension 4 drp EACH EAR Q12H 7 Days Qty: 7.5 0RF Clearcanal Earwax Softener 6.5 % drops 5 drp EACH EAR Q12H 4 Days Qty: 15 0RF No Action cyclobenzaprine 10 mg tablet 10 mg PO BID PRN (Reason: muscle spasm) Qty: 14 0RF Follow-up/Referrals: PHYSICIAN,MOBILE BATTERY TECHNICIAN [Primary Care Provider, Internal Medicine] Brian Gómez MD [Physician, Family Practice] Referral Note: primary care provider Stand Alone Forms: Work/School Release IP Time of Disposition: 01:46
[2025-04-26] MEDS: HYDROGEN PEROXIDE 3% SOLN(*SP) 473 ML BOTTLE (01:30)
[2025-04-26] MEDS: AMOXICILLIN 500 MG CAPSULE PO (01:55)
[2025-04-26 02:38] VITALS: BP 126/98; PULSE 76; RESP 16; TEMP 36.5; O2SAT 98
== END 2025-04-26 02:40 | disposition home or self-care (01) ==
PROVIDERS: Emergency Provider Registered Nurse
DX: H60.91 Unspecified otitis externa, right ear (principal); H66.91 Otitis media, unspecified, right ear; H61.23 Impacted cerumen, bilateral; F17.210 Nicotine dependence, cigarettes, uncomplicated
CPT/HCPCS: 96372; 99283; A9270; J1885; J7512

== ENCOUNTER 2025-07-14 14:00 | Outpatient (RCR) | payer OTHER, SELFPAY ==
--- NOTE | 2025-06-09 13:56 | PTOPEVAL1 ---
Assessment and note entered by Becca Monteiro, PT Evaluation Information Assessment Status Evaluation Diagnosis Oth. Spec postr procedural state, Personal hx of healed traumatic fx ICD-10 Condition Codes (PT) Pain in right ankle and joints of right foot M25. 571,Difficulty Walking R26.2,Abnormalities of gait and mobility R26.9 Subjective Information Pt reports has been about 11-12 weeks out from fracture. Tripped over pile of shoes and broke her ankle. Was still wearing her boot until last week because was told was only 85% healed at that point and didn't want to push it. Pt reports has been off the boot completely since was told to take it off a week ago. Hurts most when has to go up and down stairs to second story if has to go more than twice starts to hurt. Will feel like the ankle wants to give out Up is more difficult than the down. Is a little stiff in the mornings with waking. Reported Pain Level Pain Score 0: Self Report Assessment PT Clinical Summary Pt presents approx 11-12 weeks post-op R ORIF fibula and syndesmosis repair. Reports pain ranges from 0-7/10, increases with weightbearing and use after a certain point. Reports is able to move and use in a limited capacity without pain. Pt demonstrates decreased ROM both actively and passively, gait abnormality, and mild swelling. Pt will benefit from physical therapy in order to address these deficits and return pt to PLOF. Plan of Care Interventions Electrical Stimulation,Gait Training,Hot Pack/Cold Pack,Manual Therapy,Neuro Re-education, Therapeutic Activities,Therapeutic Exercise,Self- Care/Home Management Other Interventions Taping PT Services Indicated Yes Treatment Frequency and 2x weekly x 10 visits Duration These treatments will address the objective and functional deficits as defined above. The patient will be advanced safely and appropriately in order for the patient to progress towards his/her prior level of function. Additional exercises will be introduced and as well as a comprehensive home exercise program upon discharge, if needed, ?to ensure carryover of functional gains achieved in the clinic. This treatment plan has been reviewed and agreement upon by the patient.
--- NOTE | 2025-06-09 13:57 | OPREHPOC ---
Outpatient Therapy Plan of Care This is a Multidisciplinary Plan of Care that may contain components documented by all disciplines (PT, OT, and ST.) PT Problem 1 PT Problem #1 Knowledge Deficit PT Goal 1 Goal / Goal Update Pt will be independent in HEP Pt will verbalize understanding of diagnosis and prognosis Target Visit 10 PT Problem 2 PT Problem #2 Pain PT Goal 1 Goal / Goal Update Pt will report greatest pain level at 3/10 or less to improve ADLs and activities Target Visit 10 PT Goal 2 Goal / Goal Update Pt will report resolution of pain to return to PLOF Target Visit 20 PT Problem 3 PT Problem #3 Impaired Range of Motion PT Goal 1 Goal / Goal Update Pt will demonstrate active ROM dorsiflexion of 5 degrees for improved ankle kinematics and mobility Target Visit 10 PT Goal 2 Goal / Goal Update Pt will demonstrate active ROM dorsiflexion of 10 degrees for improved ankle kinematics and mobility Target Visit 20 PT Problem 4 PT Problem #4 Impaired Gait PT Goal 1 Goal / Goal Update Pt will demonstrate equal stance time, step length , and resolution of lateral sway in 2 min walk test for return to normalized gait pattern. Target Visit 20
--- NOTE | 2025-07-14 14:48 | PTOPDC ---
Assessment and note entered by Valerie Powell, PT Discharge Information Assessment Status Discharge Diagnosis Oth. Spec postr procedural state, Personal hx of healed traumatic fx ICD-10 Condition Codes (PT) Pain in right ankle and joints of right foot M25. 571,Difficulty Walking R26.2,Abnormalities of gait and mobility R26.9 Subjective Information Pt reports zero pain right now, she feels like she has met her goal with therapy, able to walk around without pain at all. Reported Pain Level Pain Score 0: Self Report Assessment PT Clinical Summary Tara received a total of 10 treatment sessions and demos gains in active ROM and strength. She demos improved standing ability, walking tolerance and balance, she scored 85% on LEFS and reports walking the dog multiple times a day without discomfort. She feels like she met her goal with performing ADLS and functional mobility without pain. The only task that makes the pain and swelling flare up is after going up/down stairs >4 times. She has partially met established goals and agreeable to DC to perform strengthening HEPs indep. Skilled PT discontinued at this time. Plan of Care PT Services Indicated No
== END 2025-07-15 09:41 | disposition home or self-care (01) ==
LOC: ANHPT 14:00
PROVIDERS: Visit Provider Physician Assistant Surgical
DX: Z98.890 Other specified postprocedural states (principal); Z87.81 Personal history of (healed) traumatic fracture
CPT/HCPCS: 97016; 97110; 97116; 97140; 97161; 97530